=== PATIENT | male | born 1965 | race Caucasian/White ===

== ENCOUNTER 2018-08-09 01:15 | Day surgery (SDC) | payer OTHER ==
[~2018-08-09] VITALS: Ht 175.3 cm; Wt 98.4 kg
[~2018-08-09 01:15] MED LIST: CARB-82 PO; CARB-91 PO; Carbamazepine PO; LIDOCAINE/SOD BICARB 8.4% SYR ID ONE; LOR5/325 PO; NORMOSOL R SOLN(*) 1000 ML BAG 1,000 ML IV PRN; OSEL30CA2 PO
[2018-08-09 06:15] VITALS: BP 137/87
[2018-08-09] MEDS ORDERED: LIDOCAINE/SOD BICARB 8.4% SYR ID ONE (06:45)
[2018-08-09] MEDS ORDERED: NORMOSOL R SOLN(*) 1000 ML BAG 1,000 ML IV PRN (06:45)
[2018-08-09] MEDS ORDERED: PROPOFOL EMUL(*) 10MG/ML 20 ML 40 ML ONE (07:27)
[2018-08-09] MEDS ORDERED: LIDOCAINE MPF 1% 5 ML VIAL ONE (07:27)
[2018-08-09 07:53] VITALS: BP 101/67
[2018-08-09 08:00] VITALS: BP 101/70
--- NOTE | 2018-08-09 08:01 | NUR ---
0753 SBAR REPORT WAS RECEIVED FROM MARYLU CAMARA AND DR. URBANO. PATIENT IS IN A L. LATERAL POSITION. HE ARRIVED ON 10 LITERS O2 AND WAS MOVED TO 3 LITERS OXYMASK ON ARRIVAL. LUNGS ARE CLEAR. BOWEL SOUNDS ARE HYPERACTIVE. HE HAS AN 18 GAUGE IV IN HIS R. WRIST THAT IS INFUSING. UNABLE TO ASSESS PAIN OR NAUSEA. 0801 PATIENT CONTINUES TO SLEEP AND WILL MOVE HIS ARMS OCC.
--- NOTE | 2018-08-09 08:10 | NUR ---
0810 PATIENT WOKE UP. MOVED TO A SEMIFOWLERS POSITION AND WAS MOVED TO ROOM AIR
--- NOTE | 2018-08-09 08:19 | NUR ---
0816 PATIENT BEGAN DRINKING WATER AND EATING PUDDING
[2018-08-09 08:30] VITALS: BP 117/89
[2018-08-09 08:31] VITALS: BP 120/86
--- NOTE | 2018-08-09 08:37 | NUR ---
0830 PATIENT BEGAN DOING ORTHOSTATICS. HE DENIES ANY DIZZINESS OR LIGHTHEADEDNESS 0831 PATIENT WAS STABLE ON HIS FEET 0832 IV WAS SALINE LOCKED. PATIENT BEGAN GETTING DRESSED
--- NOTE | 2018-08-09 08:42 | NUR ---
0839 IV WAS DC'D WITH CATH INTACT. 0840 PATIENT IS WAITING IN THE CHAIR FOR HIS TO PICK HIM UP. LUNGS ARE CLEAR. BOWEL SOUNDS ARE HYPERACTIVE. HE DENIES ANY PAIN OR NAUSEA. SEE DISCHARGE ASSESSMENT.
--- NOTE | 2018-08-09 10:08 | NUR ---
0900 PATIENT CONTINUES TO WATCH TV AND APPEARS TO BE DOING WELL 0932 FINISHED DC INSTRUCTIONS WITH PATIENT AND . THEY VERBALIZED UNDERSTANDING. 0934 PATIENT WAS AMBULATORY ON DISCHARGE. HE WAS ACCOMPANIED BY HIS AND Bull RIDER. SEE DISCHARGE ASSESSMENT.
== END 2018-08-09 09:34 | disposition home or self-care (01) ==
LOC: OR 01:15
PROVIDERS: ATTEND Family Medicine
DX: Z12.11 Encounter for screening for malignant neoplasm of colon (principal)
CPT/HCPCS: 00812; 45378; J2001; J2704